=== PATIENT | female | born 2000 | race Caucasian/White ===

== ENCOUNTER 2021-03-10 05:52 | Inpatient (IN) ==
[2021-03-10] MEDS ORDERED: ONDANSETRON 4 MG/2 ML VIAL IV PRN (06:03)
[2021-03-10] MEDS ORDERED: BUTORPHANOL 2 MG/ML VIAL IV PRN (06:03)
[2021-03-10] MEDS ORDERED: MEPERIDINE 50 MG/1 ML VIAL IV PRN (06:03)
[2021-03-10] MEDS ORDERED: LACTATED RINGERS 1,000 ML IV SCH ×3 (06:30→11:00)
[2021-03-10 06:41] LABS: Basophils % 0.3 % (0.0-0.8); Eosinophils # 0.1 10*3/uL (0.0-0.87); Eosinophils % 1.8 % (0.00-10.9); Hematocrit 38.3 VOL% (35.7-47.0); Hemoglobin 12.8 GM/DL (12.0-16.0); Immature Granulocytes % 0.9 %; Immature Granulocytes Absolute 0.07 #; Lymphocytes % 25.2 % (21.3-54.2); Mean Corpuscular HGB Conc 33.4 GM/DL (32-36); Mean Corpuscular Volume 88.9 FL (87-102); Mean Platelet Volume 9.5 FL (9.6-12.0); Neutrophils % 66.8 % (38.7-73.9); Platelet Count 258 T/CUMM (130-400); Red Blood Count 4.31 MC/CUMM (3.8-5.5); Red Cell Distribution Width 14.4 % (9.3-17.3)
[2021-03-10] MEDS: OXYTOCIN/LR 20 UNIT/1,000 ML BAG IV SCH (07:24)
[2021-03-10] MEDS ORDERED: LACTATED RINGERS 1,000 ML IV ONE (10:43)
[2021-03-10] MEDS ORDERED: FAMOTIDINE 20 MG/2 ML VIAL IV ONE (10:43)
[2021-03-10] MEDS ORDERED: ePHEDrine 50 MG/ML VIAL IV PRN (10:43)
[2021-03-10] MEDS ORDERED: diphenhydrAMINE 50 MG/1 ML VIAL IV PRN ×2 (10:43)
[2021-03-10] MEDS ORDERED: CITRIC ACID/SODIUM CITRATE 30 ML UDCUP PO ONE (10:43)
[2021-03-10] MEDS ORDERED: hydrOXYzine HCL 25 MG/1 ML VIAL IM PRN (10:43)
[2021-03-10] MEDS ORDERED: NALOXONE 0.4 MG/ML VIAL IV PRN (10:43)
[2021-03-10] MEDS ORDERED: PROMETHAZINE 25 MG/1 ML VIAL IM ONE (10:43)
[2021-03-10] MEDS: fentaNYL 2 MCG/ROPIV 0.2% EPID 100 ML EPIDURAL SCH ×2 (15:08→23:19)
[2021-03-10 16:52] LABS: Bilirubin,Urine Negative (Negative); Blood, Urine Negative (Negative); Glucose,Urine (UA) Negative (Negative); Ketones,Urine 80 mg/dL (Negative); Mucus,Urine Few /LPF (Occasional); Nitrite,Urine Negative (Negative); Protein,Urine Negative; RBC,Urine 1 /HPF (0-4); Squamous Epithelial Cell,Urine Occasional /HPF (0-10); Urine Appearance CLEAR (Clear); Urine Color Yellow (Yellow); Urine Specific Gravity 1.015 (1.001-1.035); Urine Urobilinogen < 2.0 EU/DL (<2.0)
[2021-03-10] MEDS: ACETAMINOPHEN 500 MG TABLET PO PRN (21:14)
[2021-03-11] MEDS ORDERED: miSOPROStoL 200 MCG TABLET ONE (00:03)
[2021-03-11] MEDS ORDERED: TRANEXAMIC ACID 1,000 MG/10 ML VIAL ONE (00:03)
[2021-03-11] MEDS ORDERED: METHYLERGONOVINE 0.2 MG/1 ML AMP ONE (00:04)
[2021-03-11] MEDS ORDERED: CARBOPROST TROMETHAMINE 250 MCG/ML AMP IM ONE (00:04)
[2021-03-11] MEDS: OXYTOCIN/LR 20 UNIT/1,000 ML BAG IV SCH (02:20)
[2021-03-11 02:38] LABS: Cord Arterial Blood HCO3 23.8 MMOL/L
[2021-03-11 02:40] LABS: Cord Venous Blood HCO3 21.1 MMOL/L; Cord Venous Blood PCO2 46.4 MMHG; Cord Venous Blood PO2 28.9
[2021-03-11] MEDS ORDERED: DIPH/TET/ACEL PERT BOOSTER VACCINE 0.5 ML VIAL IM ONE (03:59)
[2021-03-11] MEDS ORDERED: ONDANSETRON 4 MG/2 ML VIAL IV PRN (03:59)
[2021-03-11] MEDS ORDERED: RHO(D) IMMUNE GLOBULIN 300 MCG SYRINGE IM ONE (03:59)
[2021-03-11] MEDS ORDERED: OXYTOCIN/LR 20 UNIT/1,000 ML BAG IV ONE (03:59)
[2021-03-11] MEDS ORDERED: ACETAMINOPHEN 325 MG TABLET PO PRN (03:59)
[2021-03-11] MEDS ORDERED: LANOLIN 50% CREAM 0.3 OZ TUBE TOP PRN (03:59)
[2021-03-11] MEDS ORDERED: BISACODYL 10 MG SUPP RECTAL PRN (03:59)
[2021-03-11] MEDS ORDERED: HYDROCORTISONE 2.5% RECTAL CREAM 30 GM TUBE TOP PRN (03:59)
[2021-03-11] MEDS ORDERED: WITCH HAZEL PADS 100/JAR TOP PRN (03:59)
[2021-03-11] MEDS ORDERED: MEASLES/MUMPS/RUBELLA VACCINE 0.5 ML VIAL SUBCUT ONE (03:59)
[2021-03-11] MEDS ORDERED: oxyCODONE/ACETAMINOPHEN 5-325 MG TABLET PO PRN (03:59)
[2021-03-11] MEDS: BENZOCAINE 20%/MENTHOL 0.5% SPRAY 56 GM CAN TOP PRN (04:20)
[2021-03-11] MEDS: oxyCODONE/ACETAMINOPHEN 5-325 MG TABLET PO PRN ×2 (04:20→12:11)
[2021-03-11] MEDS: DOCUSATE SODIUM 100 MG CAPSULE PO SCH ×2 (09:23→20:24)
[2021-03-11 10:24] LABS: Basophils % 0.1 % (0.0-0.8); Eosinophils # 0.1 10*3/uL (0.0-0.87); Eosinophils % 1.1 % (0.00-10.9); Hematocrit 35.6 VOL% (35.7-47.0); Hemoglobin 11.7 GM/DL (12.0-16.0); Immature Granulocytes % 0.6 %; Immature Granulocytes Absolute 0.07 #; Lymphocytes # 1.3 10*3/uL (1.4-4.0); Lymphocytes % 11.8 % (21.3-54.2); Mean Corpuscular HGB Conc 32.9 GM/DL (32-36); Mean Corpuscular Volume 90.4 FL (87-102); Mean Platelet Volume 9.6 FL (9.6-12.0); Monocytes % 4.8 % (1.7-12.7); Neutrophils % 81.6 % (38.7-73.9); Platelet Count 222 T/CUMM (130-400); Red Blood Count 3.94 MC/CUMM (3.8-5.5); Red Cell Distribution Width 14.5 % (9.3-17.3); White Blood Count 10.9 T/CUMM (4-12)
[2021-03-11] MEDS: ACETAMINOPHEN 500 MG TABLET PO PRN (20:27)
[2021-03-12] MEDS: IBUPROFEN 800 MG TABLET PO PRN ×2 (03:50→11:30)
[2021-03-12] MEDS: DOCUSATE SODIUM 100 MG CAPSULE PO SCH (08:21)
[2021-03-12 10:08] LABS: Basophils % 0.2 % (0.0-0.8); Eosinophils # 0.3 10*3/uL (0.0-0.87); Eosinophils % 3.9 % (0.00-10.9); Hematocrit 34.9 VOL% (35.7-47.0); Hemoglobin 11.4 GM/DL (12.0-16.0); Immature Granulocytes % 0.4 %; Immature Granulocytes Absolute 0.03 #; Lymphocytes # 1.7 10*3/uL (1.4-4.0); Lymphocytes % 19.7 % (21.3-54.2); Mean Corpuscular HGB Conc 32.7 GM/DL (32-36); Mean Corpuscular Volume 91.6 FL (87-102); Mean Platelet Volume 9.3 FL (9.6-12.0); Monocytes % 4.3 % (1.7-12.7); Neutrophils % 71.5 % (38.7-73.9); Platelet Count 245 T/CUMM (130-400); Red Blood Count 3.81 MC/CUMM (3.8-5.5); Red Cell Distribution Width 14.9 % (9.3-17.3); White Blood Count 8.4 T/CUMM (4-12)
[2021-03-12 11:56] VITALS: BP 129/76
[2021-03-12] MEDS: BENZOCAINE 20%/MENTHOL 0.5% SPRAY 56 GM CAN TOP PRN (14:59)
== END 2021-03-12 15:13 | disposition home or self-care (01) | DRG 807 ==
LOC: N.LD 05:52 → N.OB 03-11 05:25
PROVIDERS: ADMIT Obstetrics & Gynecology; ATTEND Obstetrics & Gynecology